=== PATIENT | female | born 1985 | race African-American/Black ===

== ENCOUNTER 2016-07-17 19:12 | Emergency (ER) | payer BC ==
[2016-07-17 19:34] VITALS: BP 107/66
--- NOTE | 2016-07-17 20:07 | UC ---
Back Pain HPI - HPI Summary HPI Summary: The patient comes in today for: 1. Back pain: Onset: 7-8 hours ago. Palliative/provocative: REsting makes it better. Movement makes it worse. It will spasm. Quality: Sharp and throbbing. Region: Lower back. Severity: 8/10 Time: Comes and goes depending if she is resting. Associated symptoms: Event: She fell down the steps. She hit the lower back and sacrum. She did not hit her head. She did not have any LOC. Previous: She gave herself ibuprofen and iced it. She rested. The pain started getting worse. She took 600 mg of ibuprofen And then 2 hours later 400 mg more. Bowel/bladder incontinence: None. Previous back pain: None. Fevers: None. Unexpected weight loss: None. * - History of Current Complaint Chief Complaint: UCBackPain Stated Complaint: BACK ACHE FROM A FALL Time Seen by Provider: 07/17/16 20:00 Hx Obtained From: Patient Hx Last Menstrual Period: 07/16/16 ?: No - Allergies/Home Medications Allergies/Adverse Reactions: Allergies Allergy/AdvReac Type Severity Reaction Status Date / Time No Known Allergies Allergy Verified 11/27/14 09:13 PMH/Surg Hx/FS Hx/Imm Hx Previously Healthy: No - Family planning/BCP and hyperprolactinemia. Endocrine History Of: Denies: Diabetes, Thyroid Disease, Hyperthyroidism, Hypothyroidism, Dyslipidemia Cardiovascular History Of: Denies: Cardiac Disorders, Hypertension, Pacemaker/ICD, Myocardial Infarction , Congestive Heart Failure, Atrial Fibrillation, Deep Vein Thrombosis, Bleeding Disorders Respiratory History Of: Reports: Asthma - HASN'T USED INHALER IN OVER A YEAR Denies: COPD, Bronchitis, Pneumonia, Pulmonary Embolism GI/ History Of: Denies: Gastroesophageal Reflux, Ulcer, Gastrointestinal Bleed, Gall Bladder Disease, Kidney Stones, Diverticulitis, Renal Disease, Urosepsis Neurological History Of: Denies: TIA, CVA, Dementia, Seizures, Migraine Psychological History Of: Denies: Anxiety, Depression, Bipolar Disorder, Schizophrenia, Post Traumatic Stress Disorder Cancer History Of: Denies: Lung Cancer, Colorectal Cancer, Breast Cancer, Prostate Cancer, Cervical Cancer Other History Of: Negative For: HIV, Hepatitis B, Hepatitis C, Anticoagulant Therapy - Surgical History Surgical History: Yes Surgery Procedure, Year, and Place: LEEP PROCEDURE - [facility] 2013, arthroscopis knee surgery - Family History Known Family History: Positive: Cardiac Disease, Hypertension, Diabetes - Social History Occupation: Employed Full-time Alcohol Use: Rare Substance Use Type: None Smoking Status (MU): Never Smoked Tobacco Review of Systems Constitutional: Negative Skin: Negative Eyes: Negative ENT: Negative Respiratory: Negative Cardiovascular: Negative Gastrointestinal: Abdominal Pain - She states that this is from her back pain. Genitourinary: Negative Musculoskeletal: Arthralgia, Myalgia All Other Systems Reviewed And Are Negative: Yes Physical Exam Triage Information Reviewed: Yes Appearance: Well-Appearing, Other: - The patient is difficult to assess. Sometimes she will move and cry out in pain, but other times she will be resting in no distress or pain. Sometimes she is laughing and other times she will be grimacing. The patient walked into the exam room with no guarding or psychomotor slowing. All the time the patient was in the exam room before I saw her, she did not vocalize any pain. AFter seen, she would do this frequently. Vital Signs: Initial Vital Signs Temp 99.0 F 07/17/16 19:29 Pulse 70 07/17/16 19:29 Resp 18 07/17/16 19:29 BP 107/66 07/17/16 19:29 Pulse Ox 100 07/17/16 19:29 Vital Signs Reviewed: Yes Eyes: Positive: Conjunctiva Clear. Negative: Discharge ENT: Positive: Hearing grossly normal. Negative: Pharyngeal erythema, Nasal congestion, Nasal drainage, TM bulging, TM dull, TM red, Tonsillar swelling, Tonsillar exudate Dental: Negative: Gross Decay/Caries @, Dental Fracture @ Neck: Positive: Supple, Nontender, No Lymphadenopathy. Negative: Nuchal Rigidity Respiratory: Positive: Lungs clear, No respiratory distress, No accessory muscle use. Negative: Crackles, Wheezing Cardiovascular: Positive: RRR, Pulses Normal Abdomen Description: Positive: No Organomegaly, Soft. Negative: Nontender - She has mild tenderness of the LLQ and the RLQ with no masses or rebound or percussion tenderness., Distended, Guarding Musculoskeletal: Positive: Strength Intact, ROM Intact, Other: - There is no ecchymosis or edema of the lower spin. No hematoma. She has tenderness of palpation of the right paraspinous musculature over the left. She has no tenderness of the right CVA but there was mild on the left. Neurological: Positive: Alert, Muscle Tone Normal Psychological: Positive: Age Appropriate Behavior, Consolable Skin: Negative: rashes, breakdown Diagnostics - Radiology No standard instances Xray Interpretation: No Acute Changes - No fractures of the sacrum or coccyx, lumbar spine. Radiology Interpretation Completed By: Radiologist Back Pain Course/Dx - Differential Dx/Diagnosis Provider Diagnoses: Lower back pain (contusion from fall). Bilateral lower abdominal pain Discharge - Discharge Plan Condition: Stable Disposition: HOME Patient Education Materials: Back Pain (ED), Contusion in Adults (ED) Referrals: Amy Donnelly MD [Primary Care Provider] - 1 Week (Please see your primary care provider in a week to see how well you are doing. If you get worse, please be seen sooner in the ER or through us.)
[2016-07-17] MEDS ORDERED: Naproxen TAB* 250 MG PO ONE (20:51)
[2016-07-17] MEDS ORDERED: Cyclobenzaprine TAB* 10 MG PO ONE (20:51)
--- NOTE | 2016-07-17 21:28 | RAD ---
INDICATION: Back pain. Fall. COMPARISON: Lumbar spine July 26, 2013 TECHNIQUE: Routine PA, lateral, and oblique imaging was performed . FINDINGS: Bones: There are no acute bony findings. There are arthritic changes consisting of mild disc space narrowing at the lower 2 lumbar levels. Alignment: Normal Disc spaces: The main disc spaces are well-maintained Soft tissues: There are no soft tissue abnormalities. IMPRESSION: NO ACUTE FINDINGS. MILD DEGENERATIVE NARROWING LOWER 2 LUMBAR DISC SPACES.
--- NOTE | 2016-07-17 21:29 | RAD ---
INDICATION: Coccyx and sacrum pain COMPARISON: None TECHNIQUE: 2 views were acquired FINDINGS: There are no acute bony abnormalities of the coccyx or sacrum. The SI joints and symphysis are intact. The soft tissues are normal IMPRESSION: NORMAL STUDY.
== END 2016-07-17 21:50 | disposition home or self-care (01) ==
LOC: UCEAST 19:12
DX: S30.0XXA Contusion of lower back and pelvis, initial encounter (principal); R10.32 Left lower quadrant pain; R10.31 Right lower quadrant pain; W10.9XXA Fall (on) (from) unspecified stairs and steps, initial encounter; Y92.9 Unspecified place or not applicable
CPT/HCPCS: 72110; 72220; 81002; 99212; A9270-GY; G0463

== ENCOUNTER 2020-06-07 04:50 | Inpatient (IN) ==
[2020-06-07] MEDS ORDERED: Buffered Lidocaine 1% SYRIN 1 ml INTRADERM ONE ×2 (05:36→06:12)
[2020-06-07] MEDS ORDERED: Penicillin G Potassium IV 5,000,000 UNITS in NS 0.9% 100 ml BAG 100 ML IVPB ONE (06:12)
[2020-06-07] MEDS: Lactated Ringers 1000 ml BAG 1,000 ML IV ONE ×2 (06:43→16:36)
[2020-06-07 06:49] LABS: ABS Eosinophils 0.1 10^3/ul (0-0.6); ABS Lymphocytes 2.1 10^3/ul (1.0-4.8); ABS Monocytes 0.8 10^3/ul (0-0.8); ABS Neutrophils 9.6 10^3/ul (1.5-7.7); Eosinophil % 0.5 %; Hematocrit 38 % (35-47); Hemoglobin 12.9 g/dL (12.0-16.0); Lymphocyte % 16.5 %; Mean Corpuscular HGB Conc 34 g/dL (31-36); Mean Corpuscular Hemoglobin 31 pg (27-31); Mean Corpuscular Volume 93 fL (80-97); Mean Platelet Volume 9.4 fL (7.4-10.4); Platelet Count 210 10^3/uL (150-450); Red Blood Count 4.12 10^6 /uL (3.70-4.87); Red Cell Distribution Width 15 % (10-15); White Blood Count 12.5 10^3/uL (3.5-10.8)
[2020-06-07] MEDS ORDERED: Oxytocin in LR 20 UNITS/1,000 ML BAG IVPB SCH (07:00)
[2020-06-07] MEDS ORDERED: Penicillin G Potassium IV 3,000,000 UNITS in NS 0.9% 100 ml BAG 100 ML IVPB SCH (07:00)
[2020-06-07] MEDS ORDERED: Lactated Ringers 1000 ml BAG 1,000 ML IV SCH ×2 (07:00→22:00)
[2020-06-07 08:57] LABS: Urine Benzodiazepine Screen None Detected (None Detect); Urine Cannabinoids Screen None Detected (None Detect); Urine Opiates Screen None Detected (None Detect)
[2020-06-07] MEDS ORDERED: [UNRECOGNIZED DRUG - OTHER] PO SCH (09:00)
[2020-06-07] MEDS: Penicillin G Potassium IV 3,000,000 UNITS in NS 0.9% 100 ML IVPB SCH ×3 (10:56→19:34)
[2020-06-07] MEDS ORDERED: OBEPIDURAL 250 ML EPIDURAL ONE (15:33)
[2020-06-07] MEDS ORDERED: Sodium Citrate/Citric Acid LIQ 15 ML UDC PO PRN (16:12)
[2020-06-07] MEDS ORDERED: Lactated Ringers 1000 ml BAG 1,000 ML IV ONE (16:12)
[2020-06-07] MEDS: Phenylephrine 40 mcg/mL 10mL (400mcg) SYRINGE IV PUSH PRN ×2 (16:18→16:42)
[2020-06-07] MEDS ORDERED: OBEPIDURAL 250 ML EPIDURAL SCH (17:00)
[2020-06-07] MEDS ORDERED: Witch Hazel PAD JAR TOPICAL PRN (21:58)
[2020-06-07] MEDS ORDERED: Dibucaine 1% OINT 28.35 GM TUBE PR PRN (21:58)
[2020-06-07] MEDS ORDERED: Lidocaine 1% VIAL 10 MG/ML VIAL ONE (23:55)
[2020-06-08 07:41] LABS: ABS Lymphocytes 2.3 10^3/ul (1.0-4.8); ABS Monocytes 1.2 10^3/ul (0-0.8); ABS Neutrophils 12.5 10^3/ul (1.5-7.7); Eosinophil % 0.1 %; Hematocrit 32 % (35-47); Hemoglobin 10.8 g/dL (12.0-16.0); Lymphocyte % 14.3 %; Mean Corpuscular HGB Conc 34 g/dL (31-36); Mean Corpuscular Hemoglobin 32 pg (27-31); Mean Corpuscular Volume 94 fL (80-97); Mean Platelet Volume 9.4 fL (7.4-10.4); Platelet Count 171 10^3/uL (150-450); Red Blood Count 3.42 10^6 /uL (3.70-4.87); Red Cell Distribution Width 15 % (10-15); White Blood Count 16.1 10^3/uL (3.5-10.8)
[2020-06-08] MEDS: Lidocaine 2% JELLY 6 ML TOPICAL SCH ×3 (13:59→23:05)
[2020-06-08] MEDS: Penicillin G Potassium IV 3,000,000 UNITS in NS 0.9% 100 ML IVPB SCH (13:59)
[2020-06-09 11:45] VITALS: BP 120/70
[2020-06-09] MEDS: Lidocaine 2% JELLY 6 ML TOPICAL SCH (13:31)
== END 2020-06-09 19:10 | disposition home or self-care (01) | DRG 560 ==
LOC: MCHOBOUT 04:50 → MCHOB 06:08
PROVIDERS: ADMIT Midwife; ATTEND Midwife